=== PATIENT | female | born 1970 | race Caucasian/White ===

== ENCOUNTER 2022-06-14 14:15 | Inpatient (IN) ==
[2022-06-14] MEDS ORDERED: SODIUM CHLORIDE 0.9% 1,000 ML IV STA ×2 (14:29→15:18)
[2022-06-14 14:36] LABS: Basophils % 0.1 % (0.0-0.8); Hematocrit 45.4 VOL% (35.7-47.0); Hemoglobin 15.2 GM/DL (12.0-16.0); Immature Granulocytes % 0.4 %; Immature Granulocytes Absolute 0.05 #; Lymphocytes # 0.9 10*3/uL (1.4-4.0); Lymphocytes % 7.6 % (21.3-54.2); Mean Corpuscular HGB Conc 33.5 GM/DL (32-36); Mean Corpuscular Volume 94.8 FL (87-102); Monocytes # 0.4 10*3/uL (0.11-0.8); Monocytes % 3.2 % (1.7-12.7); Neutrophils % 88.7 % (38.7-73.9); Platelet Count 305 T/CUMM (130-400); Red Blood Count 4.79 MC/CUMM (3.8-5.5); Red Cell Distribution Width 11.6 % (9.3-17.3); White Blood Count 11.4 T/CUMM (4-12)
[2022-06-14 14:46] LABS: PT Patient Result 11.1 SECS (10.1-12.1)
[2022-06-14 15:00] LABS: Alanine Aminotransferase 14 U/L (13-56); Albumin 4.2 G/DL (3.4-5.0); Alkaline Phosphatase 153 U/L (45-117); Aspartate Amino Transferase 18 U/L (0-37); Blood Urea Nitrogen 24 MG/DL (7-18); Calcium 10.4 MG/DL (8.5-10.1); Carbon Dioxide 24 MMOL/L (21-32); Chloride 108 MMOL/L (98-107); Glucose 139 MG/DL (74-106); Osmolality,Calculated 286.3 MOS/KG (273-304); Potassium 4.4 MMOL/L (3.5-5.1); Sodium 141 MMOL/L (136-145); Total Protein 7.4 G/DL (6.4-8.2)
[2022-06-14 15:03] LABS: Calcium Oxalate Crystals,Urine Few /HPF (Few); Hyaline Casts,Urine 785 /LPF (0-3); Mucus,Urine Moderate /LPF (Occasional); RBC,Urine 83 /HPF (0-4); Squamous Epithelial Cell,Urine Occasional /HPF (0-10)
[2022-06-14 15:05] LABS: Glucose,Urine (UA) Negative (Negative); Ketones,Urine 15 mg/dL (Negative); Nitrite,Urine Negative (Negative); Protein,Urine 100 mg/dL (Negative); Urine Appearance Slightly Cloudy (Clear); Urine Color Dark Yellow (Yellow); Urine Specific Gravity 1.025 (1.001-1.035); Urine pH 5.5 (4.5-8.0)
[2022-06-14 15:06] LABS: Bilirubin,Urine Moderate mg/dL (Negative); Blood, Urine Trace mg/dL (Negative); Urine Urobilinogen 0.2 eU/dL (<2.0)
[2022-06-14] MEDS ORDERED: NALOXONE 0.4 MG/ML VIAL IV STA (16:19)
[2022-06-14 16:27] LABS: Barbiturates Screen,Urine Negative (Negative); Benzodiazepines Screen,Urine Negative (Negative); Cannabinoid Screen,Urine Negative (Negative); Opiate Screen,Urine Positive (Negative); Phencyclidine Screen,Urine Negative (Negative)
[2022-06-14 16:51] LABS: Arterial Base Excess iSTAT -6 MMOL/L (-2.5-2.5); Arterial Bicarbonate iSTAT 19.6 MMOL/L (20-26); Arterial O2 Saturation iSTAT 92 % (95-100); Arterial PCO2 iSTAT 37 MM HG (35-48); Arterial PO2 iSTAT 69 MM HG (80-95); Arterial Total CO2 iSTAT 21 MMO/L (23-27); Arterial pH iSTAT 7.332 (7.35-7.45)
[2022-06-14] MEDS ORDERED: VANCOMYCIN INJ 1,000 MG in SODIUM CHLORIDE 0.9% 250 ML IV STA (17:13)
[2022-06-14] MEDS ORDERED: LACTATED RINGERS 1,000 ML IV ONE (17:15)
[2022-06-14] MEDS ORDERED: ALBUTEROL 2.5 MG/3 ML NEB RESP TX PRN (17:16)
[2022-06-14] MEDS ORDERED: ONDANSETRON 4 MG/2 ML VIAL IV PRN (17:16)
[2022-06-14] MEDS: cefTRIAXone 2,000 MG in SODIUM CHLORIDE 0.9% 100 ML IV SCH (17:35)
[2022-06-14] MEDS ORDERED: traMADol 50 MG TABLET PO PRN (18:02)
[2022-06-14] MEDS: LORazepam 2 MG/1 ML VIAL IV PRN (20:02)
[2022-06-14] MEDS: ACYCLOVIR INJ 640 MG in SODIUM CHLORIDE 0.9% 100 ML IV SCH (20:33)
[2022-06-14] MEDS: ENOXAPARIN 40 MG/0.4 ML SYRINGE SUBCUT SCH (20:34)
[2022-06-14] MEDS: PANTOPRAZOLE 40 MG VIAL IV SCH (20:34)
[2022-06-14] MEDS: HALOPERIDOL 5 MG/ML AMP IM PRN (23:05)
[2022-06-15] MEDS: ACYCLOVIR INJ 640 MG in SODIUM CHLORIDE 0.9% 100 ML IV SCH ×3 (03:37→20:04)
[2022-06-15 04:45] LABS: Basophils % 0.2 % (0.0-0.8); Eosinophils % 0.1 % (0.00-10.9); Hematocrit 38.2 VOL% (35.7-47.0); Immature Granulocytes % 0.4 %; Immature Granulocytes Absolute 0.04 #; Lymphocytes # 1.2 10*3/uL (1.4-4.0); Lymphocytes % 11.8 % (21.3-54.2); Mean Corpuscular HGB Conc 33.8 GM/DL (32-36); Mean Corpuscular Volume 94.8 FL (87-102); Mean Platelet Volume 10.5 FL (9.6-12.0); Monocytes # 0.8 10*3/uL (0.11-0.8); Monocytes % 8.2 % (1.7-12.7); Neutrophils % 79.3 % (38.7-73.9); Red Blood Count 4.03 MC/CUMM (3.8-5.5); Red Cell Distribution Width 11.9 % (9.3-17.3); White Blood Count 9.7 T/CUMM (4-12)
[2022-06-15 04:47] LABS: Hemoglobin 12.9 GM/DL (12.0-16.0); Platelet Count 135 T/CUMM (130-400)
[2022-06-15] MEDS: cefTRIAXone 2,000 MG in SODIUM CHLORIDE 0.9% 100 ML IV SCH ×2 (05:02→17:55)
[2022-06-15 05:15] LABS: Albumin 3.1 G/DL (3.4-5.0); Bilirubin,Total 0.7 MG/DL (0.20-1.00); Calcium 8.5 MG/DL (8.5-10.1); Osmolality,Calculated 287.8 MOS/KG (273-304); Potassium 3.5 MMOL/L (3.5-5.1); Thyroid Stimulating Hormone 1.24 uIU/ml (0.358-3.74); Total Protein 6.1 G/DL (6.4-8.2)
[2022-06-15] MEDS: LORazepam 2 MG/1 ML VIAL IV PRN (07:54)
[2022-06-15] MEDS: LURASIDONE 40 MG TABLET PO SCH (08:57)
[2022-06-15] MEDS ORDERED: ZIPRASIDONE 20 MG/1 ML VIAL IM ONE (10:10)
[2022-06-15] MEDS: HALOPERIDOL 5 MG/ML AMP IM PRN ×2 (10:22→20:39)
[2022-06-15] MEDS ORDERED: MORPHINE 2 MG/1 ML SYRINGE IV ONE (12:19)
[2022-06-15 12:24] LABS: Lymphocytes,CSF 27 %; Neutrophils,CSF 73 %
[2022-06-15 12:25] LABS: Appearance,CSF Cloudy; Red Blood Cell,CSF > 100000 C/CUMM; White Blood Cell,CSF 62 C/CUMM
[2022-06-15 12:38] LABS: Glucose,CSF 49 MG/DL (40-70)
[2022-06-15] MEDS: LACTATED RINGERS 1,000 ML IV SCH (14:25)
[2022-06-15] MEDS: PANTOPRAZOLE 40 MG VIAL IV SCH (20:04)
[2022-06-15] MEDS: ENOXAPARIN 40 MG/0.4 ML SYRINGE SUBCUT SCH (20:04)
[2022-06-16] MEDS: LACTATED RINGERS 1,000 ML IV SCH ×3 (00:34→14:36)
[2022-06-16 02:39] LABS: Basophils % 0.1 % (0.0-0.8); Hematocrit 37.4 VOL% (35.7-47.0); Hemoglobin 12.3 GM/DL (12.0-16.0); Immature Granulocytes % 0.4 %; Immature Granulocytes Absolute 0.05 #; Lymphocytes # 1.1 10*3/uL (1.4-4.0); Lymphocytes % 9.1 % (21.3-54.2); Mean Corpuscular HGB Conc 32.9 GM/DL (32-36); Mean Corpuscular Volume 96.4 FL (87-102); Mean Platelet Volume 9.9 FL (9.6-12.0); Monocytes # 0.9 10*3/uL (0.11-0.8); Monocytes % 6.8 % (1.7-12.7); Neutrophils % 83.6 % (38.7-73.9); Platelet Count 150 T/CUMM (130-400); Red Blood Count 3.88 MC/CUMM (3.8-5.5); White Blood Count 12.6 T/CUMM (4-12)
[2022-06-16 03:09] LABS: Albumin 3.1 G/DL (3.4-5.0); Bilirubin,Total 0.5 MG/DL (0.20-1.00); Calcium 8.5 MG/DL (8.5-10.1); Osmolality,Calculated 278.4 MOS/KG (273-304); Potassium 3.6 MMOL/L (3.5-5.1); Total Protein 6.3 G/DL (6.4-8.2)
[2022-06-16] MEDS: ACYCLOVIR INJ 640 MG in SODIUM CHLORIDE 0.9% 100 ML IV SCH ×3 (04:01→20:02)
[2022-06-16] MEDS: cefTRIAXone 2,000 MG in SODIUM CHLORIDE 0.9% 100 ML IV SCH ×2 (05:19→16:50)
[2022-06-16 08:02] LABS: Calcium 8.8 MG/DL (8.5-10.1); Osmolality,Calculated 278.4 MOS/KG (273-304); Potassium 3.8 MMOL/L (3.5-5.1)
[2022-06-16 08:22] LABS: Arterial Base Excess iSTAT -13 MMOL/L (-2.5-2.5); Arterial Bicarbonate iSTAT 11.7 MMOL/L (20-26); Arterial O2 Saturation iSTAT 96 % (95-100); Arterial PCO2 iSTAT 24 MM HG (35-48); Arterial PO2 iSTAT 86 MM HG (80-95); Arterial Total CO2 iSTAT 12 MMO/L (23-27); Arterial pH iSTAT 7.299 (7.35-7.45)
[2022-06-16] MEDS: LURASIDONE 40 MG TABLET PO SCH (08:26)
[2022-06-16] MEDS ORDERED: SODIUM BICARBONATE 50 MEQ/50 ML VIAL IV ONE (08:38)
[2022-06-16] MEDS ORDERED: VANCOMYCIN INJ 1,000 MG in SODIUM CHLORIDE 0.9% 250 ML IV SCH (09:30)
[2022-06-16] MEDS ORDERED: ZINC OXIDE PASTE 113 GM TUBE TOP PRN (10:54)
[2022-06-16] MEDS: VANCOMYCIN INJ 1,500 MG in SODIUM CHLORIDE 0.9% 500 ML IV SCH ×2 (12:19→23:04)
[2022-06-16 14:04] LABS: Bilirubin,Total 0.6 MG/DL (0.20-1.00); Calcium 8.8 MG/DL (8.5-10.1); Osmolality,Calculated 275.5 MOS/KG (273-304); Potassium 3.3 MMOL/L (3.5-5.1)
[2022-06-16 14:41] LABS: Hepatitis B Core IgM Quant 0.15 Index; Hepatitis B Surface Ag Quant < 0.10 Index; Hepatitis B Surface Ag Result Non-Reactive (NonReactive); Hepatitis C Virus Ab Quant < 0.02 Index; Hepatitis C Virus Ab Result Non-Reactive (NonReactive)
[2022-06-16] MEDS: SODIUM BICARB INJ 100 MEQ in DEXTROSE 5% 1,000 ML IV SCH (16:49)
[2022-06-16] MEDS: POTASSIUM CHLORIDE 20 MEQ TABLET PO PRN ×2 (16:49→20:09)
[2022-06-16] MEDS: PANTOPRAZOLE 40 MG VIAL IV SCH (20:02)
[2022-06-16] MEDS: ENOXAPARIN 40 MG/0.4 ML SYRINGE SUBCUT SCH (20:02)
[2022-06-17] MEDS: SODIUM BICARB INJ 100 MEQ in DEXTROSE 5% 1,000 ML IV SCH ×3 (01:41→20:28)
[2022-06-17] MEDS: ACYCLOVIR INJ 640 MG in SODIUM CHLORIDE 0.9% 100 ML IV SCH ×3 (04:08→20:17)
[2022-06-17 05:04] LABS: Basophils % 0.1 % (0.0-0.8); Hematocrit 35.6 VOL% (35.7-47.0); Hemoglobin 11.8 GM/DL (12.0-16.0); Immature Granulocytes % 0.7 %; Immature Granulocytes Absolute 0.06 #; Lymphocytes # 0.9 10*3/uL (1.4-4.0); Lymphocytes % 10.2 % (21.3-54.2); Mean Corpuscular HGB Conc 33.1 GM/DL (32-36); Mean Corpuscular Volume 93.4 FL (87-102); Mean Platelet Volume 10.3 FL (9.6-12.0); Monocytes # 0.6 10*3/uL (0.11-0.8); Monocytes % 6.7 % (1.7-12.7); Neutrophils % 82.3 % (38.7-73.9); Platelet Count 162 T/CUMM (130-400); Red Blood Count 3.81 MC/CUMM (3.8-5.5); Red Cell Distribution Width 11.9 % (9.3-17.3); White Blood Count 8.9 T/CUMM (4-12)
[2022-06-17] MEDS: cefTRIAXone 2,000 MG in SODIUM CHLORIDE 0.9% 100 ML IV SCH ×2 (05:12→16:56)
[2022-06-17 05:24] LABS: Albumin 2.9 G/DL (3.4-5.0); Bilirubin,Total 0.4 MG/DL (0.20-1.00); Calcium 8.6 MG/DL (8.5-10.1); Osmolality,Calculated 274.7 MOS/KG (273-304); Potassium 3.4 MMOL/L (3.5-5.1); Total Protein 5.4 G/DL (6.4-8.2)
[2022-06-17] MEDS: LURASIDONE 40 MG TABLET PO SCH (10:00)
[2022-06-17] MEDS: METOPROLOL TARTRATE 25 MG TABLET PO SCH (16:56)
[2022-06-17] MEDS: POTASSIUM CHLORIDE 20 MEQ TABLET PO PRN ×3 (16:56→22:58)
[2022-06-17] MEDS: ENOXAPARIN 40 MG/0.4 ML SYRINGE SUBCUT SCH (20:18)
[2022-06-17] MEDS: PANTOPRAZOLE 40 MG VIAL IV SCH (20:18)
[2022-06-17] MEDS ORDERED: METOPROLOL SUCCINATE XL 25 MG TABLET PO SCH (21:00)
[2022-06-18] MEDS: ACYCLOVIR INJ 640 MG in SODIUM CHLORIDE 0.9% 100 ML IV SCH ×3 (04:29→22:46)
[2022-06-18] MEDS: cefTRIAXone 2,000 MG in SODIUM CHLORIDE 0.9% 100 ML IV SCH (05:34)
[2022-06-18 05:49] LABS: Basophils % 0.1 % (0.0-0.8); Hematocrit 36.6 VOL% (35.7-47.0); Hemoglobin 12.6 GM/DL (12.0-16.0); Immature Granulocytes % 0.4 %; Immature Granulocytes Absolute 0.03 #; Lymphocytes % 12.2 % (21.3-54.2); Mean Corpuscular HGB Conc 34.4 GM/DL (32-36); Mean Corpuscular Volume 90.6 FL (87-102); Mean Platelet Volume 10.7 FL (9.6-12.0); Monocytes # 0.6 10*3/uL (0.11-0.8); Monocytes % 7.2 % (1.7-12.7); Neutrophils % 80.1 % (38.7-73.9); Platelet Count 181 T/CUMM (130-400); Red Blood Count 4.04 MC/CUMM (3.8-5.5); Red Cell Distribution Width 11.6 % (9.3-17.3); White Blood Count 8.4 T/CUMM (4-12)
[2022-06-18 06:19] LABS: Osmolality,Calculated 258.8 MOS/KG (273-304); Potassium 2.9 MMOL/L (3.5-5.1)
[2022-06-18] MEDS ORDERED: MAGNESIUM SULF RIDER 4 GM/100 ML PREMIX IV PRN (07:33)
[2022-06-18] MEDS ORDERED: MAGNESIUM SULF RIDER 2 GM/50 ML PREMIX IV PRN (07:33)
[2022-06-18] MEDS: METOPROLOL TARTRATE 25 MG TABLET PO SCH ×2 (08:40→22:47)
[2022-06-18] MEDS: POTASSIUM CHLORIDE 20 MEQ TABLET PO PRN (08:40)
[2022-06-18] MEDS: LURASIDONE 40 MG TABLET PO SCH (11:58)
[2022-06-18] MEDS: SODIUM CHLORIDE 0.9% 1,000 ML IV SCH (12:00)
[2022-06-18] MEDS: ENOXAPARIN 40 MG/0.4 ML SYRINGE SUBCUT SCH (22:47)
[2022-06-19] MEDS: SODIUM CHLORIDE 0.9% 1,000 ML IV SCH ×5 (03:04→21:33)
[2022-06-19] MEDS: ACYCLOVIR INJ 640 MG in SODIUM CHLORIDE 0.9% 100 ML IV SCH (04:29)
[2022-06-19 05:25] LABS: Hematocrit 37.8 VOL% (35.7-47.0); Hemoglobin 12.6 GM/DL (12.0-16.0); Immature Granulocytes % 0.5 %; Immature Granulocytes Absolute 0.03 #; Lymphocytes # 0.7 10*3/uL (1.4-4.0); Lymphocytes % 11.1 % (21.3-54.2); Mean Corpuscular HGB Conc 33.3 GM/DL (32-36); Mean Corpuscular Volume 93.1 FL (87-102); Mean Platelet Volume 10.7 FL (9.6-12.0); Monocytes # 0.6 10*3/uL (0.11-0.8); Monocytes % 10.2 % (1.7-12.7); Neutrophils % 78.2 % (38.7-73.9); Platelet Count 181 T/CUMM (130-400); Red Blood Count 4.06 MC/CUMM (3.8-5.5); Red Cell Distribution Width 11.5 % (9.3-17.3); White Blood Count 6.3 T/CUMM (4-12)
[2022-06-19 05:53] LABS: Albumin 2.5 G/DL (3.4-5.0); Bilirubin,Total 0.4 MG/DL (0.20-1.00); Calcium 8.4 MG/DL (8.5-10.1); Osmolality,Calculated 272.7 MOS/KG (273-304); Total Protein 5.5 G/DL (6.4-8.2)
[2022-06-19] MEDS ORDERED: PANTOPRAZOLE 40 MG TABLET PO SCH (06:30)
[2022-06-19] MEDS: LURASIDONE 40 MG TABLET PO SCH (09:07)
[2022-06-19] MEDS: METOPROLOL TARTRATE 25 MG TABLET PO SCH ×2 (09:07→21:29)
[2022-06-19] MEDS: amLODIPine 5 MG TABLET PO SCH (09:07)
[2022-06-19] MEDS: POTASSIUM CHLORIDE 20 MEQ TABLET PO PRN ×4 (09:17→17:04)
[2022-06-19] MEDS: SIMETHICONE CHEW 125 MG TABLET PO PRN ×2 (11:17→18:44)
[2022-06-19] MEDS: ENOXAPARIN 40 MG/0.4 ML SYRINGE SUBCUT SCH (21:29)
[2022-06-20 05:49] LABS: Basophils % 0.2 % (0.0-0.8); Hematocrit 36.8 VOL% (35.7-47.0); Immature Granulocytes % 0.5 %; Immature Granulocytes Absolute 0.03 #; Lymphocytes # 1.2 10*3/uL (1.4-4.0); Lymphocytes % 18.9 % (21.3-54.2); Mean Corpuscular HGB Conc 32.6 GM/DL (32-36); Mean Corpuscular Volume 95.3 FL (87-102); Mean Platelet Volume 10.8 FL (9.6-12.0); Monocytes # 0.6 10*3/uL (0.11-0.8); Neutrophils % 70.4 % (38.7-73.9); Platelet Count 198 T/CUMM (130-400); Red Blood Count 3.86 MC/CUMM (3.8-5.5); Red Cell Distribution Width 11.9 % (9.3-17.3); White Blood Count 6.1 T/CUMM (4-12)
[2022-06-20] MEDS: SODIUM CHLORIDE 0.9% 1,000 ML IV SCH ×2 (06:12→14:19)
[2022-06-20 06:26] LABS: Alanine Aminotransferase 63 U/L (13-56); Albumin 2.5 G/DL (3.4-5.0); Alkaline Phosphatase 98 U/L (45-117); Aspartate Amino Transferase 46 U/L (0-37); Bilirubin,Total < 0.39 MG/DL (0.20-1.00); Blood Urea Nitrogen 6 MG/DL (7-18); Calcium 8.9 MG/DL (8.5-10.1); Carbon Dioxide 24 MMOL/L (21-32); Chloride 109 MMOL/L (98-107); Glucose 98 MG/DL (74-106); Osmolality,Calculated 276.4 MOS/KG (273-304); Potassium 3.3 MMOL/L (3.5-5.1); Sodium 140 MMOL/L (136-145); Total Protein 5.5 G/DL (6.4-8.2)
[2022-06-20] MEDS: POTASSIUM CHLORIDE 20 MEQ TABLET PO PRN (07:01)
[2022-06-20] MEDS: SODIUM BICARB INJ 100 MEQ in DEXTROSE 5% 1,000 ML IV SCH (08:32)
[2022-06-20] MEDS: SIMETHICONE CHEW 125 MG TABLET PO PRN ×2 (10:18→20:07)
[2022-06-20] MEDS: METOPROLOL TARTRATE 25 MG TABLET PO SCH ×2 (10:18→20:07)
[2022-06-20] MEDS: amLODIPine 5 MG TABLET PO SCH (10:18)
[2022-06-20] MEDS: LURASIDONE 40 MG TABLET PO SCH (10:18)
[2022-06-20] MEDS: ENOXAPARIN 40 MG/0.4 ML SYRINGE SUBCUT SCH (20:07)
[2022-06-21] MEDS: SODIUM CHLORIDE 0.9% 1,000 ML IV SCH (03:11)
[2022-06-21 06:19] LABS: Calcium 8.3 MG/DL (8.5-10.1); Osmolality,Calculated 277.4 MOS/KG (273-304); Potassium 2.9 MMOL/L (3.5-5.1)
[2022-06-21] MEDS: POTASSIUM CHLORIDE 20 MEQ TABLET PO PRN ×4 (06:38→14:19)
[2022-06-21] MEDS ORDERED: LORazepam 0.5 MG TABLET PO PRN (09:05)
[2022-06-21] MEDS ORDERED: ERGOCALCIFEROL 50,000 UNIT CAPSULE PO SCH (09:30)
[2022-06-21] MEDS: METOPROLOL TARTRATE 25 MG TABLET PO SCH ×2 (09:42→21:22)
[2022-06-21] MEDS: DULoxetine 30 MG CAPSULE PO SCH ×2 (09:42→21:23)
[2022-06-21] MEDS: LURASIDONE 40 MG TABLET PO SCH (09:42)
[2022-06-21] MEDS: amLODIPine 5 MG TABLET PO SCH (09:42)
[2022-06-21] MEDS: MEGESTROL 40 MG TABLET PO SCH ×2 (09:42→21:22)
[2022-06-21] MEDS: SIMETHICONE CHEW 125 MG TABLET PO PRN (14:19)
[2022-06-21] MEDS ORDERED: GABAPENTIN 100 MG CAPSULE PO SCH (21:00)
[2022-06-21] MEDS: ENOXAPARIN 40 MG/0.4 ML SYRINGE SUBCUT SCH (21:22)
[2022-06-22 05:46] LABS: Basophils % 0.1 % (0.0-0.8); Hematocrit 37.7 VOL% (35.7-47.0); Hemoglobin 12.3 GM/DL (12.0-16.0); Immature Granulocytes % 0.6 %; Immature Granulocytes Absolute 0.04 #; Lymphocytes # 1.7 10*3/uL (1.4-4.0); Lymphocytes % 23.9 % (21.3-54.2); Mean Corpuscular HGB Conc 32.6 GM/DL (32-36); Mean Corpuscular Volume 96.2 FL (87-102); Mean Platelet Volume 10.4 FL (9.6-12.0); Monocytes # 0.7 10*3/uL (0.11-0.8); Monocytes % 10.4 % (1.7-12.7); Platelet Count 229 T/CUMM (130-400); Red Blood Count 3.92 MC/CUMM (3.8-5.5); Red Cell Distribution Width 12.2 % (9.3-17.3)
[2022-06-22 06:11] LABS: Alanine Aminotransferase 49 U/L (13-56); Albumin 2.5 G/DL (3.4-5.0); Alkaline Phosphatase 95 U/L (45-117); Aspartate Amino Transferase 24 U/L (0-37); Bilirubin,Total < 0.39 MG/DL (0.20-1.00); Blood Urea Nitrogen 6 MG/DL (7-18); Carbon Dioxide 24 MMOL/L (21-32); Chloride 112 MMOL/L (98-107); Glucose 105 MG/DL (74-106); Osmolality,Calculated 276.4 MOS/KG (273-304); Potassium 3.1 MMOL/L (3.5-5.1); Sodium 140 MMOL/L (136-145); Total Protein 5.4 G/DL (6.4-8.2)
[2022-06-22] MEDS: POTASSIUM CHLORIDE 20 MEQ TABLET PO PRN ×3 (07:30→12:03)
[2022-06-22] MEDS: LACTATED RINGERS 1,000 ML IV SCH ×2 (08:20→12:03)
[2022-06-22] MEDS: MEGESTROL 40 MG TABLET PO SCH (10:13)
[2022-06-22] MEDS: DULoxetine 30 MG CAPSULE PO SCH (10:13)
[2022-06-22] MEDS: METOPROLOL TARTRATE 25 MG TABLET PO SCH (10:13)
[2022-06-22] MEDS: amLODIPine 5 MG TABLET PO SCH (10:13)
[2022-06-22] MEDS: LURASIDONE 40 MG TABLET PO SCH (12:03)
[2022-06-22] MEDS ORDERED: TUBERCULIN SKIN TEST 0.1 ML SYRINGE INTRADERM ONE (13:00)
[2022-06-22 13:22] VITALS: BP 132/74
== END 2022-06-22 15:40 | DRG 91 ==
LOC: N.EDINP 14:15 → N.ED 14:15 → SUATTDRO 16:26 → N.CC 17:19 → SUATTDRO 06-16 07:38 → N.5E 06-18 02:55
PROVIDERS: ADMIT Internal Medicine; ATTEND Internal Medicine Geriatric Medicine